=== PATIENT | female | born 1945 | race Caucasian/White ===

== ENCOUNTER 2018-06-17 18:38 | Emergency (ER) | payer OTHER ==
[~2018-06-17] VITALS: Ht 157.5 cm; Wt 52.2 kg
[2018-06-17 18:58] VITALS: BP 175/86
[2018-06-17] MEDS ORDERED: LIDOCAINE 1%HCL (LOCAL ANESTH) 10 ML MDV ONE ×2 (21:00→22:00)
[2018-06-17] MEDS ORDERED: LIDOCAINE 1% HCL (LOCAL ANESTH.) INJ 20ML MDV IJ ONE (21:00)
== END 2018-06-17 23:45 | disposition home or self-care (01) ==
LOC: ER 18:50
DX: S63.104A Unspecified dislocation of right thumb, initial encounter (principal); S01.81XA Laceration without foreign body of other part of head, initial encounter; E78.5 Hyperlipidemia, unspecified; I10 Essential (primary) hypertension; F17.210 Nicotine dependence, cigarettes, uncomplicated; V80.010A Animal-rider injured by fall from or being thrown from horse in noncollision accident, initial encounter; Y93.52 Activity, horseback riding; Y92.89 Other specified places as the place of occurrence of the external cause; Y99.8 Other external cause status
CPT/HCPCS: 12013; 26700; 70486; 73120; 73130; 99284; J2001